=== PATIENT | male | born 1985 ===

== ENCOUNTER 2017-03-02 04:00 | Emergency (ER) | payer SELFPAY ==
[2017-03-02 04:22] VITALS: TEMP 98.1
--- NOTE | 2017-03-02 06:47 | C.PDOC ---
History Of Present Illness 31 yo male c/o sore throat, painful swallowing, cough with yellow sputum, and rhinorrhea with subjective fever. no cp or sob. no sick contacts. Time Seen by Provider: 03/02/17 06:05 Chief Complaint (Nursing): ENT Problem History Per: Patient History/Exam Limitations: None Onset/Duration Of Symptoms: Days (4) Current Symptoms Are (Timing): Still Present Severity: Moderate Anticoagulant/Antiplatlet Use?: No Recent Aspirin Use: No Past Medical History Reviewed: Historical Data, Nursing Documentation, Vital Signs Vital Signs: Last Vital Signs Temp 98.1 F 03/02/17 04:19 Pulse 75 03/02/17 07:08 Resp 18 03/02/17 07:08 BP 125/75 03/02/17 07:08 Pulse Ox 99 03/02/17 07:08 Surgical History: No Surg Hx Family History: States: Unknown Family Hx - Social History Hx Tobacco Use: No Hx Alcohol Use: Yes Hx Substance Use: Yes - Immunization History Hx Tetanus Toxoid Vaccination: No Hx Influenza Vaccination: No Hx Pneumococcal Vaccination: No Review Of Systems Constitutional: Positive for: Fever (subjective), Chills ENT: Positive for: Nose Discharge, Throat Pain. Negative for: Ear Pain, Ear Discharge Cardiovascular: Negative for: Chest Pain, Palpitations, Paroxysmal Noc. Dyspnea Respiratory: Positive for: Cough, Shortness of Breath, Sputum (yellow) Gastrointestinal: Negative for: Nausea, Vomiting, Abdominal Pain, Diarrhea Skin: Negative for: Rash Neurological: Negative for: Weakness, Numbness Physical Exam - Physical Exam Appears: Non-toxic, No Acute Distress Skin: Normal Color, Warm, Dry Head: Atraumatic, Normacephalic Nose: Normal Oral Mucosa: Moist Tongue: Normal Appearing Lips: Normal Appearing Teeth: Normal Dentition Gingiva: Normal Appearing Throat: Other (bilateral tonsillar enlargement, left gtreater than right, no exudate, not touching, no drooling, no stridor. ) Neck: No Midline Cervical Tenderness, No Paracervical Tenderness Lymphatic: Adenopathy (anterior bilateral cervical tenderness) Cardiovascular: Rhythm Regular, No Murmur Respiratory: Normal Breath Sounds, No Rales, No Rhonchi, No Stridor Gastrointestinal/Abdominal: Soft, No Tenderness Neurological/Psych: Oriented x3, Normal Speech, Normal Cognition ED Course And Treatment O2 Sat by Pulse Oximetry: 96 Disposition Counseled Patient/Family Regarding: Diagnosis, Need For Followup, Rx Given - Disposition Referrals: [facility] [Outside] [facility] [Outside] Disposition: HOME/ ROUTINE Disposition Time: 06:51 Condition: STABLE Additional Instructions: Gargle with warm salty water several times a day. Take antibiotics and ibuprofen as prescribed. Follow up in medical clinic. Return to ER for any worsening symptoms. Prescriptions: Azithromycin [Z-Rick] 250 mg PO DAILY #4 tab Instructions: Upper Respiratory Infection (ED) Print Language: PASHTO - Clinical Impression Clinical Impression: Upper respiratory infection
[2017-03-02 07:09] VITALS: BP 125/75; PULSE 75; RESP 18
[2017-03-03 22:41] VITALS: O2SAT 96
== END 2017-03-02 07:09 | disposition home or self-care (01) ==
LOC: C.ER 04:00
DX: J06.9 Acute upper respiratory infection, unspecified (principal)